=== PATIENT | female | born 2000 | race African-American/Black ===

== ENCOUNTER 2024-07-24 20:49 | Emergency (ER) | payer OTHER ==
[~2024-07-24] VITALS: Ht 165.1 cm; Wt 112.0 kg
[2024-07-24 20:51] VITALS: O2SAT 100
[2024-07-24 21:14] LABS: BASOPHILS % 0.8 % (0.0-2.0); EOSINOPHILS % 1.6 % (0.0-5.0); HEMATOCRIT. 34.2 % (36.0-48.0); HEMOGLOBIN. 11.3 g/dL (12.0-16.0); LYMPHOCYTES % 30.5 % (20.0-50.0); MEAN CORPUSCULAR HGB CONC 33.2 g/dL (31.0-37.0); MEAN CORPUSCULAR VOLUME 84.5 fL (81.0-99.0); MEAN PLATELET VOLUME 7.7 fl (7.4-10.4); MONOCYTES % 6.7 % (2.0-8.0); NEUTROPHILS % 60.4 % (40.0-76.0); PLATELET 398 x1000/uL (130-400); RED BLOOD CELL COUNT 4.04 mill/uL (4.2-5.4); RED CELL DISTRIBUTION WIDTH 13.9 % (11.6-14.6); WHITE BLOOD COUNT 8.6 x1000/uL (4.5-11.0)
[2024-07-24 21:20] LABS: CHLORIDE 111 mEq/L (98-107); POTASSIUM 3.9 mEq/L (3.5-5.1); SODIUM 144 mEq/L (136-145)
[2024-07-24 21:21] LABS: CALCIUM 9.6 mg/dL (8.7-10.4); CARBON DIOXIDE 23 mEq/L (21-32)
[2024-07-24 21:26] LABS: CREATININE 0.8 mg/dL (0.6-1.0); GLUCOSE 117 mg/dL (70-105); UREA NITROGEN BLOOD 10 mg/dL (9-23)
[2024-07-24 21:28] LABS: TROPONIN I HIGH SENSITIVITY < 4 ng/L (3.0-34)
[2024-07-24 21:29] LABS: HCG SCREEN NEGATIVE
[2024-07-24 21:30] VITALS: TEMP 36.7
[2024-07-24 21:31] LABS: PROTHROMBIN TIME 10.4 sec (9.6-11.0)
[2024-07-25 00:36] VITALS: BP 129/81; PULSE 87; RESP 13; O2SAT 98
== END 2024-07-25 00:37 | disposition home or self-care (01) ==
LOC: ER 20:49 → EDBD 20:49 → ER 07-25 00:37
DX: R55 Syncope and collapse (principal); F20.9 Schizophrenia, unspecified
CPT/HCPCS: 36415; 71045; 80048; 84484; 84703; 85025; 93005; 99285

== ENCOUNTER 2024-07-30 21:20 | Emergency (ER) | payer OTHER ==
[~2024-07-30] VITALS: Ht 165.1 cm; Wt 84.0 kg
[2024-07-30 21:29] VITALS: O2SAT 100
[2024-07-30] MEDS ORDERED: BENZ2TAB65 MT (22:19)
[2024-07-30] MEDS ORDERED: BENZTROPINE MESYLATE 1 MG/ML 2ML VIAL IM ONE (22:30)
[2024-07-30] MEDS: BENZTROPINE MESYLATE 1 MG/ML 2ML VIAL IM SCH (22:30)
[2024-07-30 23:47] VITALS: BP 136/85; PULSE 80; RESP 20; TEMP 36.8; O2SAT 100
== END 2024-07-30 23:52 | disposition home or self-care (01) ==
LOC: ER 21:20
DX: G24.02 Drug induced acute dystonia (principal); F20.9 Schizophrenia, unspecified; Z79.899 Other long term (current) drug therapy
CPT/HCPCS: 99283; 96372; J0515

== ENCOUNTER 2024-08-07 18:23 | Emergency (ER) | payer OTHER ==
[~2024-08-07] VITALS: Ht 167.6 cm; Wt 96.0 kg
[~2024-08-07 18:23] MED LIST: BENZ2TAB65 MT
[2024-08-07 18:25] VITALS: O2SAT 98
[2024-08-07 19:39] LABS: BASOPHILS % 0.9 % (0.0-2.0); EOSINOPHILS % 1.3 % (0.0-5.0); HEMOGLOBIN. 11.6 g/dL (12.0-16.0); LYMPHOCYTES % 25.8 % (20.0-50.0); MEAN CORPUSCULAR HEMOGLOBIN 28.7 pg (28.0-32.0); MEAN CORPUSCULAR HGB CONC 33.2 g/dL (31.0-37.0); MEAN CORPUSCULAR VOLUME 86.3 fL (81.0-99.0); MEAN PLATELET VOLUME 7.9 fl (7.4-10.4); MONOCYTES % 5.5 % (2.0-8.0); NEUTROPHILS % 66.5 % (40.0-76.0); PLATELET 365 x1000/uL (130-400); RED BLOOD CELL COUNT 4.05 mill/uL (4.2-5.4); RED CELL DISTRIBUTION WIDTH 13.9 % (11.6-14.6); WHITE BLOOD COUNT 9.4 x1000/uL (4.5-11.0)
[2024-08-07] MEDS: BENZTROPINE MESYLATE 1MG TABLET PO SCH (19:41)
[2024-08-07 19:45] LABS: CHLORIDE 105 mEq/L (98-107); POTASSIUM 3.7 mEq/L (3.5-5.1); SODIUM 139 mEq/L (136-145)
[2024-08-07 19:46] LABS: CALCIUM 9.5 mg/dL (8.7-10.4); CARBON DIOXIDE 27 mEq/L (21-32)
[2024-08-07 19:51] LABS: CREATININE 0.9 mg/dL (0.6-1.0); GLUCOSE 120 mg/dL (70-105); UREA NITROGEN BLOOD 7 mg/dL (9-23)
[2024-08-07 19:53] LABS: ALANINE AMINOTRANSFERASE 16 IU/L (10-49); ALBUMIN 4.7 g/dL (3.2-4.8); ASPARTATE AMINOTRANSFERASE 15 IU/L (<34); BILIRUBIN DIRECT < 0.1 mg/dL (<=3.0); BILIRUBIN TOTAL 0.2 mg/dL (0.1-1.0); PROTEIN TOTAL 7.1 g/dL (6.0-8.3)
[2024-08-07 20:02] LABS: COLOR URINE YELLOW (YELLOW); GLUCOSE URINE NEGATIVE (NEGATIVE); KETONES URINE NEGATIVE (NEGATIVE); LEUKOCYTE ESTERASE URINE NEGATIVE (NEGATIVE); NITRITE URINE NEGATIVE (NEGATIVE); OCCULT BLOOD URINE 3+ (NEGATIVE); PROTEIN URINE 1+ (NEGATIVE); SPECIFIC GRAVITY URINE 1.027 (1.005-1.030); UROBILINOGEN URINE 0.2 E.U./dL (0.2-1.0)
[2024-08-07 20:05] LABS: HCG SCREEN NEGATIVE
[2024-08-07 20:16] VITALS: BP 135/87; PULSE 73; RESP 15; TEMP 36.7; O2SAT 100
[2024-08-07] MEDS ORDERED: BENZ2TAB65 MT (20:25)
[2024-08-07] MEDS ORDERED: MAG355OR21 MT (20:25)
[2024-08-07 20:36] LABS: CLARITY URINE HAZY (CLEAR)
[2024-08-07 20:37] LABS: WBC URINE 0-2 /hpf (0-2)
[2024-08-07 20:38] LABS: RBC URINE 15-25 /hpf (0-2)
[2024-08-07 20:39] LABS: BACTERIA URINE TRACE; SQUAMOUS EPITHELIAL CELL URINE 2+ /lpf (RARE/1+)
[2024-08-07] MEDS: MAGNESIUM/ALUMINUM HYDROXIDE/SIMETHICONE 30ML UDC PO ONE (20:39)
== END 2024-08-07 20:46 | disposition home or self-care (01) ==
LOC: ER 18:23
DX: M79.10 Myalgia, unspecified site (principal); I10 Essential (primary) hypertension; F20.9 Schizophrenia, unspecified; G40.909 Epilepsy, unspecified, not intractable, without status epilepticus; Z79.899 Other long term (current) drug therapy
CPT/HCPCS: 36415; 80048; 80076; 81003; 84703; 85025; 99283

== ENCOUNTER 2024-08-13 17:23 | Emergency (ER) | payer OTHER ==
[~2024-08-13] VITALS: Ht 172.7 cm; Wt 110.0 kg
[~2024-08-13 17:23] MED LIST changes: +MAG355OR21 MT
[2024-08-13 17:28] VITALS: O2SAT 100
[2024-08-13] MEDS: DIPHENHYDRAMINE 25MG CAPSULE PO ONE (18:38)
[2024-08-13] MEDS ORDERED: DIPH25CA83 MT (19:47)
[2024-08-13] MEDS ORDERED: BENZ2TAB65 MT (19:50)
[2024-08-13 20:31] VITALS: BP 124/81; PULSE 71; RESP 20; TEMP 36.9; O2SAT 100
== END 2024-08-13 20:37 | disposition home or self-care (01) ==
LOC: ER 17:23
DX: G24.02 Drug induced acute dystonia (principal); I10 Essential (primary) hypertension; F20.9 Schizophrenia, unspecified; Z79.899 Other long term (current) drug therapy; Z88.8 Allergy status to other drugs, medicaments and biological substances
CPT/HCPCS: 99283; 81025; Q0163

== ENCOUNTER 2024-08-21 19:19 | Emergency (ER) | payer MEDICAID ==
[~2024-08-21] VITALS: Ht 172.7 cm; Wt 121.0 kg
[2024-08-21 19:24] VITALS: TEMP 36.8; O2SAT 97
[2024-08-21] MEDS ORDERED: BENZ1TAB79 MT (21:13)
[2024-08-21] MEDS: DIPHENHYDRAMINE 50MG/ML VIAL IM ONE (21:21)
[2024-08-21 21:30] VITALS: BP 140/93; PULSE 79; RESP 16; O2SAT 100
== END 2024-08-21 21:34 | disposition home or self-care (01) ==
LOC: ER 19:19
DX: G24.02 Drug induced acute dystonia (principal); I10 Essential (primary) hypertension; F20.9 Schizophrenia, unspecified; F32.A Depression, unspecified; Z79.899 Other long term (current) drug therapy
CPT/HCPCS: 99283; 81025; 96372; J1200

== ENCOUNTER 2024-08-26 16:11 | Emergency (ER) | payer MEDICAID ==
[~2024-08-26] VITALS: Ht 165.1 cm; Wt 86.0 kg
[~2024-08-26 16:11] MED LIST changes: +BENZ1TAB79 MT
[2024-08-26 16:14] VITALS: TEMP 37.2; O2SAT 100
[2024-08-26 17:22] LABS: BASOPHILS % 0.4 % (0.0-2.0); HEMATOCRIT. 36.1 % (36.0-48.0); HEMOGLOBIN. 12.1 g/dL (12.0-16.0); LYMPHOCYTES % 25.1 % (20.0-50.0); MEAN CORPUSCULAR HEMOGLOBIN 28.7 pg (28.0-32.0); MEAN CORPUSCULAR HGB CONC 33.6 g/dL (31.0-37.0); MEAN CORPUSCULAR VOLUME 85.5 fL (81.0-99.0); MEAN PLATELET VOLUME 7.9 fl (7.4-10.4); MONOCYTES % 6.1 % (2.0-8.0); NEUTROPHILS % 67.4 % (40.0-76.0); PLATELET 333 x1000/uL (130-400); RED BLOOD CELL COUNT 4.22 mill/uL (4.2-5.4); RED CELL DISTRIBUTION WIDTH 13.5 % (11.6-14.6); WHITE BLOOD COUNT 7.8 x1000/uL (4.5-11.0)
[2024-08-26 17:24] VITALS: BP 128/87; PULSE 86; RESP 16
[2024-08-26] MEDS: KETOROLAC 30MG/ML VIAL IM ONE (17:24)
[2024-08-26 17:29] LABS: CHLORIDE 107 mEq/L (98-107); POTASSIUM 3.8 mEq/L (3.5-5.1); SODIUM 142 mEq/L (136-145)
[2024-08-26 17:30] LABS: CALCIUM 10.1 mg/dL (8.7-10.4); CARBON DIOXIDE 26 mEq/L (21-32)
[2024-08-26 17:31] LABS: D-DIMER 0.28 mg/L FEU (<0.50)
[2024-08-26 17:35] LABS: CREATININE 0.9 mg/dL (0.6-1.0); GLUCOSE 138 mg/dL (70-105); UREA NITROGEN BLOOD 8 mg/dL (9-23)
[2024-08-26 17:36] LABS: TROPONIN I HIGH SENSITIVITY < 4 ng/L (3.0-34)
[2024-08-26 17:37] LABS: ALANINE AMINOTRANSFERASE 25 IU/L (10-49); ALBUMIN 4.8 g/dL (3.2-4.8); ASPARTATE AMINOTRANSFERASE 19 IU/L (<34)
[2024-08-26 17:38] LABS: BILIRUBIN DIRECT 0.1 mg/dL (<=3.0); BILIRUBIN TOTAL 0.4 mg/dL (0.1-1.0); PROTEIN TOTAL 7.1 g/dL (6.0-8.3)
[2024-08-26 17:50] LABS: CLARITY URINE CLOUDY (CLEAR); COLOR URINE YELLOW (YELLOW); GLUCOSE URINE NEGATIVE (NEGATIVE); KETONES URINE NEGATIVE (NEGATIVE); LEUKOCYTE ESTERASE URINE NEGATIVE (NEGATIVE); NITRITE URINE NEGATIVE (NEGATIVE); OCCULT BLOOD URINE 3+ (NEGATIVE); PH URINE 5.5 (4.5-8.0); PROTEIN URINE TRACE (NEGATIVE); SPECIFIC GRAVITY URINE 1.016 (1.005-1.030); UROBILINOGEN URINE 0.2 E.U./dL (0.2-1.0)
[2024-08-26 18:13] LABS: BACTERIA URINE 1+; SQUAMOUS EPITHELIAL CELL URINE 2+ /lpf (RARE/1+); WBC URINE 0-2 /hpf (0-2)
[2024-08-26] MEDS: FAMOTIDINE 20MG TABLET PO SCH (18:46)
[2024-08-26] MEDS ORDERED: KETO10TA2 MT (19:09)
== END 2024-08-26 19:31 | disposition home or self-care (01) ==
LOC: ER 16:11
DX: R07.89 Other chest pain (principal); R06.02 Shortness of breath; F20.9 Schizophrenia, unspecified; F41.9 Anxiety disorder, unspecified; I10 Essential (primary) hypertension; Z79.899 Other long term (current) drug therapy
CPT/HCPCS: 80076; 80048; 81003; 85025; 85379; 85610; 84484; 36415; 71045; 93005; 96372; 99285; J1885; Z7610 ×2